=== PATIENT | male | born 1965 | race Caucasian/White ===

== ENCOUNTER 2017-08-12 14:48 | Emergency (ER) | payer BC, OTHER ==
[~2017-08-12] VITALS: Ht 182.9 cm; Wt 88.9 kg
[~2017-08-12 14:48] MED LIST: AGM875 PO
[2017-08-12 14:53] VITALS: TEMP 36.4; Ht 182.9 cm; Wt 88.9 kg
[2017-08-12 15:16] VITALS: O2SAT 100
[2017-08-12 15:32] LABS: HEMATOCRIT 42.5 % (42-52); HEMOGLOBIN 14.5 g/dL (14.0-18.0); MEAN CELL VOLUME 96.4 fL (80-100); MEAN CORPUSCULAR HEMOGLOBIN 32.9 pg (25-34); MEAN CORPUSCULAR HGB CONC 34.1 g/dl (32-36); MEAN PLATELET VOLUME 10.7 fL (7.4-10.4); PLATELET COUNT 203 K/uL (130-400); RED CELL DISTRIBUTION WIDTH CV 13.5 % (11.5-14.5); RED CELL DISTRIBUTION WIDTH SD 47.7 fL (36.4-46.3); WHITE BLOOD COUNT 6.65 K/uL (4.8-10.8)
--- NOTE | 2017-08-12 15:40 | EMERGENCY ROOM VISIT NOTE ---
History Report prepared by Deng: Joseph Solis Under the Supervision of: Dr. Nilesh Aylaa M.D. First contact with patient: 15:23 Chief Complaint: NEURO SYMPTOMS Stated Complaint: MINI STROKE OR MS REMISSION,TINGLING HAND/FACE,DIS Nursing Triage Summary: Right hand and right facial numbness and feeling like he was disoriented this morning in [facility] at 1200. Went to PCP and was told to get an MRI, sent to ED. Symptoms resolved at this time. Hx MS, dx in 1988, not on any medications for this as Dr. Gonzales does not think that was an accurate diagnosis. 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 The patient went to a walk-in clinic and was directed to the ED for evaluation. He states numbness in right hand and right side of face while he was at [facility]. He states that he felt disoriented. He notes the symptoms have resolved. 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 A total of 10 systems reviewed and were otherwise negative. Past Medical & Surgical Medical Problems: (1) H/O coronary angiogram Surgical Problems: (1) Hx of tonsillectomy Family History Cancer Gallbladder disease Heart disease Hypertension Kidney disease Kidney stones Seizures Social History Smoking Status: Never Smoker Smokeless Tobacco Use: No Alcohol Use: occasionally Marital Status: Housing Status: lives with family Occupation Status: employed Current/Historical Medications Scheduled Aspirin (Aspirin Chewable), 81 MG PO DAILY Allergies Coded Allergies: No Known Allergies (Verified , 08/12/17) Physical Exam Vital Signs Date Time Temp Pulse Resp B/P (MAP) Pulse Ox O2 Delivery O2 Flow Rate FiO2 08/12/17 18:30 58 18 116/79 99 Room Air 08/12/17 17:51 56 112/81 99 Room Air 08/12/17 15:18 61 08/12/17 15:16 100 Room Air 08/12/17 14:53 36.4 67 18 138/84 99 Room Air Physical Exam GENERAL: Patient is a healthy-appearing well-nourished male HEAD: Normocephalic atraumatic EYES: Ocular movements intact pupils equal and react to light OROPHARYNX mucous membranes are moist no exudates present no erythema or edema present NECK: Supple no nuchal rigidity CHEST: Good equal expansion LUNGS: Clear and equal to auscultation CARDIAC: Normal S1 and S2 ABDOMEN: Soft nontender no guarding BACK: No CVA tenderness EXTREMITIES: No pain upon palpation normal muscle strength in all groups no clubbing cyanosis or edema NEURO: Patient is following commands and answering questions appropriately. Alert and oriented x3 Cranial Nerves 2-12 grossly intact Medical Decision & Procedures ER Provider Diagnostic Interpretation: Radiology results as stated below per my review and radiologist interpretation: CHEST ONE VIEW PORTABLE HISTORY: arm numbness, cva sx COMPARISON: None. FINDINGS: The lungs are clear. Cardiac silhouette is normal in size. No pleural effusions. No pneumothorax. IMPRESSION: No acute process. Electronically signed by: Brent Khan M.D. 08/12/2017 4:46 PM Dictated Date/Time: 08/12/2017 4:45 PM Brain MRI WITH AND WITHOUT CONTRAST HISTORY: Pt c/o Rt arm weakness TECHNIQUE: Multiplanar multisequence MRI of the brain was performed both before and after the intravenous administration of contrast. COMPARISON STUDY: Brain MRI 09/01/2009. FINDINGS: There are no areas of restricted diffusion to suggest acute infarction. The midline structures are intact. Mild mucosal thickening within the maxillary sinuses and ethmoid air cells with a small retention cyst within the right maxillary sinus. No fluid levels within the paranasal sinuses. Small linear focus of encephalomalacia within the left cerebellar hemisphere consistent with an old infarct. This remains unchanged. The orbits are unremarkable.. The mastoid air cells are clear. The ventricles and sulci are within normal limits for age. There is no mass, hematoma, midline shift. The major vascular flow-voids at the skull base are well maintained. Postcontrast sequences show no areas of abnormal enhancement. IMPRESSION: No significant change compared to the prior study. No acute intracranial abnormality. Electronically signed by: Brent Khan M.D. 08/12/2017 6:09 PM Dictated Date/Time: 08/12/2017 6:03 PM Laboratory Results 08/12/17 15:05 08/12/17 15:05 Test 08/12/17 00:00 08/12/17 15:05 Influenza Type A Antigen Neg for Influ A (NEG) Influenza Type B Antigen Neg for Influ B (NEG) Red Blood Count 4.41 M/uL (4.7-6.1) Mean Corpuscular Volume 96.4 fL (80-100) Mean Corpuscular Hemoglobin 32.9 pg (25-34) Mean Corpuscular Hemoglobin Concent 34.1 g/dl (32-36) RDW Standard Deviation 47.7 fL (36.4-46.3) RDW Coefficient of Variation 13.5 % (11.5-14.5) Mean Platelet Volume 10.7 fL (7.4-10.4) Prothrombin Time 10.9 SECONDS (9.0-12.0) Prothromb Time International Ratio 1.0 (0.9-1.1) Activated Partial Thromboplast Time 26.4 SECONDS (21.0-31.0) Partial Thromboplastin Ratio 1.0 Anion Gap 6.0 mmol/L (3-11) Est Creatinine Clear Calc Drug Dose 92.3 ml/min Estimated GFR () 95.9 Estimated GFR (Non- 82.7 BUN/Creatinine Ratio 16.3 (10-20) Calcium Level 8.4 mg/dl (8.5-10.1) Total Bilirubin 0.3 mg/dl (0.2-1) Aspartate Amino Transf (AST/SGOT) 34 U/L (15-37) Alanine Aminotransferase (ALT/SGPT) 33 U/L (12-78) Alkaline Phosphatase 49 U/L (45-117) Total Protein 7.0 gm/dl (6.4-8.2) Albumin 3.7 gm/dl (3.4-5.0) Globulin 3.3 gm/dl (2.5-4.0) Albumin/Globulin Ratio 1.1 (0.9-2) Chemistry Specimen Hemolysis Labs reviewed by ED physician. Medications Administered Medications (Trade) Dose Ordered Sig/Lamar Route Start Time Stop Time Status Last Admin Dose Admin Potassium Chloride (Chari Ciel Elix) 40 meq NOW STAT PO 08/12/17 15:53 08/12/17 15:54 DC 08/12/17 16:19 40 MEQ Aspirin (Aspirin Chew) 324 mg NOW STAT PO 08/12/17 18:26 08/12/17 18:27 DC 08/12/17 18:34 324 MG ECG Indication: weakness Rate (beats per minute): 61 Rhythm: normal sinus Findings: no acute ischemic change, no ectopy ED Course 152: Past medical records reviewed. The patient was evaluated in room A3. A complete history and physical examination was performed. 1553: Ordered Potassium Chloride 40 meq PO 1819: I spoke with Dr. Gonzales neurologist. We discussed the patients case. He recommends aspirin. He will follow up with the patient. 1824: I reassessed the patient at this time. He is feeling better and resting comfortably. I discussed the results and treatment plan with the patient. I answered all pertaining questions that he had. He expressed understanding and verbalized agreement. The patient will be discharged home. 1825: Ordered Aspirin 324 mg PO Medical Decision Prior records/ancillary studies reviewed and summarized above. Nursing notes reviewed. The patient's history was concerning for weakness. Differential diagnosis: Etiologies such as metabolic, infection, hypo/hyperglycemia, electrolyte abnormalities, cardiac sources, intracerebral event, toxicologic, neurologic, as well as others were entertained. This is a 52-year-old male who presents emergency department complaining of right arm weakness. This resolved prior to the patient arriving in emergency department. The patient has a history of MS versus seizures versus TIAs. The patient reports he has had episodes like this previously. I did send the patient for an MRI of the head with contrast however this did not show any acute process. I did discuss the case with the patient's neurologist. We are going to place the patient on aspirin for follow-up in the office. The patient' s potassium was repleted here in the emergency department. Patient was in agreement with the treatment plan. Medication Reconcilliation Current Medication List: was personally reviewed by me Blood Pressure Screening Patient's blood pressure: Normal blood pressure Consults Time Called: 1814 Consulting Physician: Dr. Gonzales, neurologist Returned Call: [address] Gonzales, neurologist. We discussed the patients case. He recommends aspirin. He will follow up with the patient. Impression Primary Impression: Right arm weakness Scribe Attestation The scribe's documentation has been prepared under my direction and personally reviewed by me in its entirety. I confirm that the note above accurately reflects all work, treatment, procedures, and medical decision making performed by me. Departure Information Dispostion Home / Self-Care Prescriptions Aspirin (ASPIRIN CHEWABLE) 81 Mg Chew 81 MG PO DAILY for 30 Days, #30 TAB Prov: Nilesh Ayala MD 08/12/17 Referrals Crescencio Barnard, (PCP) Forms HOME CARE DOCUMENTATION FORM, IMPORTANT VISIT INFORMATION, WORK / SCHOOL INSTRUCTIONS Patient Instructions My [facility] Additional Instructions Follow up with Dr Gonzales's office Take 81 mg ASA daily You have been examined and treated today on an emergency basis only. This is not a substitute for, or an effort to provide, complete comprehensive medical care. It is impossible to recognize and treat all injuries or illnesses in a single emergency department visit. It is therefore important that you follow up closely with Dr Barnard. Call as soon as possible for an appointment. Thank you for your time and consideration. I look forward to speaking with you again soon. Please don't hesitate to call us if you have any questions.
[2017-08-12 15:41] LABS: PTT PATIENT 26.4 SECONDS (21.0-31.0)
[2017-08-12] MEDS ORDERED: POTASSIUM CHLORIDE 20 MEQ/15 ML UDC PO STA (15:53)
[2017-08-12 16:18] LABS: ALBUMIN 3.7 gm/dl (3.4-5.0); CALCIUM 8.4 mg/dl (8.5-10.1); CREATININE 1.04 mg/dl (0.60-1.40); POTASSIUM 3.6 mmol/L (3.5-5.1)
[2017-08-12 16:25] LABS: INFLUENZA B ANTIGEN Neg for Influ B (NEG)
--- NOTE | 2017-08-12 16:47 | DIAGNOSTIC IMAGING REPORT ---
CHEST ONE VIEW PORTABLE HISTORY: arm numbness, cva sx COMPARISON: None. FINDINGS: The lungs are clear. Cardiac silhouette is normal in size. No pleural effusions. No pneumothorax. IMPRESSION: No acute process. Electronically signed by: Brent Khan M.D. 08/12/2017 4:46 PM Dictated Date/Time: 08/12/2017 4:45 PM
--- NOTE | 2017-08-12 18:11 | DIAGNOSTIC IMAGING REPORT ---
Brain MRI WITH AND WITHOUT CONTRAST HISTORY: Pt c/o Rt arm weakness TECHNIQUE: Multiplanar multisequence MRI of the brain was performed both before and after the intravenous administration of contrast. COMPARISON STUDY: Brain MRI 09/01/2009. FINDINGS: There are no areas of restricted diffusion to suggest acute infarction. The midline structures are intact. Mild mucosal thickening within the maxillary sinuses and ethmoid air cells with a small retention cyst within the right maxillary sinus. No fluid levels within the paranasal sinuses. Small linear focus of encephalomalacia within the left cerebellar hemisphere consistent with an old infarct. This remains unchanged. The orbits are unremarkable.. The mastoid air cells are clear. The ventricles and sulci are within normal limits for age. There is no mass, hematoma, midline shift. The major vascular flow-voids at the skull base are well maintained. Postcontrast sequences show no areas of abnormal enhancement. IMPRESSION: No significant change compared to the prior study. No acute intracranial abnormality. Electronically signed by: Brent Khan M.D. 08/12/2017 6:09 PM Dictated Date/Time: 08/12/2017 6:03 PM
[2017-08-12] MEDS ORDERED: ASPIRIN 81 MG CHEW PO STA (18:26)
[2017-08-12] MEDS ORDERED: ASPCH81X PO (18:28)
[2017-08-12 18:30] VITALS: BP 116/79; PULSE 58; O2SAT 99
[2017-08-13 15:44] LABS: ISTAT CREATININE 0.9 mg/dl (0.6-1.3); ISTAT IONIZED CALCIUM 1.11 mmol/l (1.12-1.32); ISTAT POTASSIUM 3.6 mEq/L (3.3-5.0); ISTAT SODIUM 141 mEq/L (135-144)
== END 2017-08-12 18:36 | disposition home or self-care (01) ==
LOC: C.EDB 14:50 → C.EDA 18:36
DX: M62.81 Muscle weakness (generalized) (principal); Z80.9 Family history of malignant neoplasm, unspecified; Z83.79 Family history of other diseases of the digestive system; Z82.49 Family history of ischemic heart disease and other diseases of the circulatory system; Z84.1 Family history of disorders of kidney and ureter